=== PATIENT | female | born 1980 | race Caucasian/White ===

== ENCOUNTER 2019-01-09 08:17 | Day surgery (SDC) | payer OTHER ==
[2019-01-08 14:08] VITALS: BMI 27.8
[2019-01-09] MEDS ORDERED: Midazolam HCl 2 mg/2 ml Vial ONE (08:29)
--- NOTE | 2019-01-09 11:26 | OP ---
DATE OF PROCEDURE: 01/09/2019 ASSISTANCE SURGEON: None. PROCEDURE PERFORMED: Colonoscopy, screening. INDICATION: A 38-year-old woman here for high-risk colorectal cancer screening exam. This is her first colonoscopy. Her father had colon cancer at age 45. MEDICATIONS: See Anesthesia record. FINDINGS: After discussion of the risks, benefits, and alternatives of the procedure, informed consent was obtained and witnessed. Pre-endoscopic cardiopulmonary examination was satisfactory. Time-out was performed before sedation was achieved. Sedation was achieved with Anesthesia assistance in the endoscopy unit. Digital rectal exam was performed, which was unremarkable. A Pentax adult colonoscope was inserted into the anus and passed forward to the cecum in the usual fashion. The cecal base was identified by the appendiceal orifice as well as the ileocecal valve. The terminal ileum was intubated and the ileal mucosa appeared normal. The colonoscope was slowly withdrawn in a gradual and circumferential manner with careful examination of the entire colonic mucosa. The quality of the prep was good. The colonic mucosa appeared normal throughout. There was no evidence of any polyps or mass lesions. Retroflexion in the rectum was unremarkable. The colonoscope was completely withdrawn and the patient allowed to recover. The patient tolerated the procedure well. There were no immediate postprocedure complications. IMPRESSION: Normal colonoscopy to the terminal ileum. RECOMMENDATION: Repeat colonoscopy every five years for screening, due to her family history of colon cancer in a first-degree relative at the age 45. Job ID: [id number]
[2019-01-09] MEDS ORDERED: PROPOFOL 200 MG/20 ML VIAL ONE (14:24)
[2019-01-09] MEDS ORDERED: Lidocaine 1% PF 5 ML VIAL ONE (14:24)
== END 2019-01-09 11:50 ==
LOC: SDC 08:17
PROVIDERS: ATTEND Internal Medicine
PROC: 0DJD8ZZ Inspection of Lower Intestinal Tract, Via Natural or Artificial Opening Endoscopic (ICD-10-PCS; principal; 2019-01-09)
DX: Z12.11 Encounter for screening for malignant neoplasm of colon (principal); G43.909 Migraine, unspecified, not intractable, without status migrainosus; F32.9 Major depressive disorder, single episode, unspecified; F41.9 Anxiety disorder, unspecified; Z80.0 Family history of malignant neoplasm of digestive organs; Z87.891 Personal history of nicotine dependence; Z88.2 Allergy status to sulfonamides
CPT/HCPCS: J2250